=== PATIENT | male | born 1940 | race Hispanic/Latino ===

== ENCOUNTER 2017-12-16 09:38 | Emergency (ER) | payer OTHER ==
[~2017-12-16 09:38] MED LIST: ASPI-891 PO; ATOR40TA69 PO; DOXY100C2 PO; LISI-617 PO; METF500T6 PO; METO50TA18 PO; OMEP20CA10 PO
[2017-12-16 10:48] LABS: BASOPHILS % (AUTO) 0.5 % (0.0-5.0); EOSINOPHILS % (AUTO) 1.1 % (0.0-8.0); HEMATOCRIT 44.2 % (42-54); LYMPHOCYTES % (AUTO) 20.4 % (21.0-51.0); MEAN CORPUSCULAR HEMOGLOBIN 27.9 pg (27.0-33.0); MEAN CORPUSCULAR HGB CONC 33.9 g/dL (32.0-36.0); MEAN CORPUSCULAR VOLUME 82.2 fL (79-99); MONOCYTES % (AUTO) 7.3 % (3.0-13.0); NEUTROPHILS % (AUTO) 70.7 % (40.0-77.0); PLATELET COUNT (AUTO) 185 K/uL (130-400); RED BLOOD CELL COUNT(AUTO) 5.38 MIL/uL (4.50-6.20); RED CELL DISTRIBUTION WIDTH 15.5 % (11.0-15.5); WHITE BLOOD COUNT (AUTO) 8.2 K/uL (4.8-10.8)
[2017-12-16 10:54] LABS: CREATININE 1.2 mg/dL (0.5-1.5); INR 1.01 (0.85-1.15); PARTIAL THROMBOPLASTIN TIME 24.2 SEC (26.3-35.5); POTASSIUM 4.6 mmol/L (3.5-5.1); PROTHROMBIN TIME 10.6 SEC (9.6-11.6)
[2017-12-16 11:07] LABS: ALBUMIN 3.9 g/dL (3.5-5.0); BILIRUBIN,TOTAL 1.2 mg/dL (0.2-1.0); CREATINE KINASE MB 5.4 ng/mL (0.5-3.6); TOTAL PROTEIN, SERUM 7.4 g/dL (6.0-8.3)
== END 2017-12-16 13:30 | disposition home or self-care (01) ==
LOC: EDH 09:38
DX: M79.605 Pain in left leg (principal); M79.604 Pain in right leg; I10 Essential (primary) hypertension; I25.10 Atherosclerotic heart disease of native coronary artery without angina pectoris; I25.2 Old myocardial infarction; E78.5 Hyperlipidemia, unspecified; Z87.891 Personal history of nicotine dependence
CPT/HCPCS: 36415; 71045; 80053; 82550; 82553; 84484; 85025; 85610; 85730; 93005; 93925; 93970

== ENCOUNTER → 2019-02-20 | Outpatient (CLI) | payer OTHER ==
[~2019-02-20] MED LIST changes: +METF-444 PO; -METF500T6 PO
== END | disposition home or self-care (01) ==
LOC: SHCH 09:40
PROVIDERS: ATTEND Internal Medicine Cardiovascular Disease
DX: I65.23 Occlusion and stenosis of bilateral carotid arteries (principal)
CPT/HCPCS: 93880

== ENCOUNTER → 2019-02-22 | Outpatient (CLI) | payer OTHER | END | disposition home or self-care (01) | LOC: SHCH 12:54 | PROVIDERS: ATTEND Internal Medicine Cardiovascular Disease | DX: I35.0 Nonrheumatic aortic (valve) stenosis (principal) | CPT/HCPCS: 93306 ==

== ENCOUNTER → 2019-02-28 | Outpatient (CLI) | payer OTHER ==
[~2019-02-28] VITALS: Ht 175.3 cm; Wt 87.5 kg
[~2019-02-28] MED LIST changes: +ALBUMIN (HUMAN) 25% 100 ML IV ONE; +REGADENOSON 0.4 MG/5 ML PF SYG IVP ONE; +REGADENOSON 0.4 MG/5 ML PF SYG IVP SCH
== END | disposition home or self-care (01) ==
LOC: SHCH 07:52
PROVIDERS: ATTEND Internal Medicine Cardiovascular Disease
DX: I25.10 Atherosclerotic heart disease of native coronary artery without angina pectoris (principal); I49.5 Sick sinus syndrome
CPT/HCPCS: 78452; 93017; 96374; A9500 ×2; J2785; P9046

== ENCOUNTER → 2019-03-28 | Emergency (ER) | payer OTHER ==
[~2019-03-28] MED LIST changes: -ALBUMIN (HUMAN) 25% 100 ML IV ONE; +ASPIRIN 325 MG TABLET ONE; +ASPIRIN 325MG EC TAB 325 MG TABLET.DR PO SCH; +FAMOTIDINE/PF 20 MG/2 ML VIAL IV ONE; +LIDOCAINE HCL 2% VISCOUS 15 ML UDCUP ONE; +MAG HYDROX/AL HYDROX/SIMETH ES 30 ML SUSP UDCUP ONE; +METOPROLOL TARTRATE 50 MG TAB ONE; +METOPROLOL TARTRATE 50 MG TAB PO SCH; +NITROGLYCERIN 0.4 MG SL TAB SL ONE; +NITROGLYCERIN 1GM/1 INCH PACKET TD SCH; +PANTOPRAZOLE SODIUM 40 MG TABLET.DR PO SCH; -REGADENOSON 0.4 MG/5 ML PF SYG IVP ONE; -REGADENOSON 0.4 MG/5 ML PF SYG IVP SCH; +SODIUM CHLORIDE 0.9% 10 ML VIAL IVP PRN
[2019-03-28 06:24] LABS: EOSINOPHILS % (AUTO) 2.4 % (0.0-8.0); HEMATOCRIT 39.8 % (42-54); LYMPHOCYTES % (AUTO) 33.1 % (21.0-51.0); MEAN CORPUSCULAR HEMOGLOBIN 27.5 pg (27.0-33.0); MEAN CORPUSCULAR HGB CONC 33.2 g/dL (32.0-36.0); MEAN CORPUSCULAR VOLUME 82.7 fL (79-99); MONOCYTES % (AUTO) 7.5 % (3.0-13.0); PLATELET COUNT (AUTO) 202 K/uL (130-400); RED BLOOD CELL COUNT(AUTO) 4.82 MIL/uL (4.50-6.20); RED CELL DISTRIBUTION WIDTH 14.1 % (11.0-15.5)
[2019-03-28 06:30] LABS: CREATININE 1.2 mg/dL (0.5-1.5); POTASSIUM 4.1 mmol/L (3.5-5.1)
[2019-03-28 06:36] LABS: BILIRUBIN,TOTAL 0.6 mg/dL (0.2-1.0); TOTAL PROTEIN, SERUM 6.9 g/dL (6.0-8.3)
[2019-03-28 06:47] LABS: INR 1.04 (0.85-1.15); PARTIAL THROMBOPLASTIN TIME 27.7 SEC (26.3-35.5); PROTHROMBIN TIME 10.9 SEC (9.6-11.6)
[2019-03-28 07:50] LABS: B-TYPE NATRIURETIC PEPTIDE 110 pg/mL (0-100)
== END ==
LOC: EDH 06:07 → UNDOADMIN 07:51 → EDHIP 07:51 → UNDODISIN 10:24
DX: R07.89 Other chest pain (principal); R10.13 Epigastric pain; E78.5 Hyperlipidemia, unspecified; I25.10 Atherosclerotic heart disease of native coronary artery without angina pectoris; I10 Essential (primary) hypertension; I25.2 Old myocardial infarction; Z98.890 Other specified postprocedural states
CPT/HCPCS: 36415; 71045; 80053; 82550; 83605; 83690; 83880; 84484 ×2; 85025; 85610; 85730; 93005; 96374; 99285; J3490; G0378

== ENCOUNTER 2019-07-05 17:55 | Emergency (ER) | payer OTHER ==
[~2019-07-05 17:55] MED LIST changes: -ASPIRIN 325 MG TABLET ONE; -ASPIRIN 325MG EC TAB 325 MG TABLET.DR PO SCH; -FAMOTIDINE/PF 20 MG/2 ML VIAL IV ONE; -LIDOCAINE HCL 2% VISCOUS 15 ML UDCUP ONE; -MAG HYDROX/AL HYDROX/SIMETH ES 30 ML SUSP UDCUP ONE; -METOPROLOL TARTRATE 50 MG TAB ONE; -METOPROLOL TARTRATE 50 MG TAB PO SCH; -NITROGLYCERIN 0.4 MG SL TAB SL ONE; -NITROGLYCERIN 1GM/1 INCH PACKET TD SCH; +OMEP-50 PO; -OMEP20CA10 PO; -PANTOPRAZOLE SODIUM 40 MG TABLET.DR PO SCH; -SODIUM CHLORIDE 0.9% 10 ML VIAL IVP PRN
[2019-07-05] MEDS ORDERED: ACETAMINOPHEN 325 MG TAB ONE (19:15)
== END 2019-07-05 20:20 | disposition home or self-care (01) ==
LOC: EDH 17:55
DX: S46.011A Strain of muscle(s) and tendon(s) of the rotator cuff of right shoulder, initial encounter (principal); I10 Essential (primary) hypertension; E78.5 Hyperlipidemia, unspecified; I25.10 Atherosclerotic heart disease of native coronary artery without angina pectoris; I25.2 Old myocardial infarction; Z95.0 Presence of cardiac pacemaker; Z87.891 Personal history of nicotine dependence; Z98.890 Other specified postprocedural states; W18.39XA Other fall on same level, initial encounter; Y93.89 Activity, other specified; Y92.89 Other specified places as the place of occurrence of the external cause; Y99.8 Other external cause status
CPT/HCPCS: 73030

== ENCOUNTER 2021-05-24 07:13 | Day surgery (SDC) | payer OTHER ==
[2021-05-21 13:16] LABS: BASOPHILS % (AUTO) 0.7 % (0.0-5.0); EOSINOPHILS % (AUTO) 0.9 % (0.0-8.0); HEMATOCRIT 42.9 % (42-54); LYMPHOCYTES % (AUTO) 16.7 % (21.0-51.0); MEAN CORPUSCULAR HEMOGLOBIN 27.6 pg (27.0-33.0); MEAN CORPUSCULAR HGB CONC 31.2 g/dL (32.0-36.0); MEAN CORPUSCULAR VOLUME 88.3 fL (79-99); MONOCYTES % (AUTO) 9.6 % (3.0-13.0); NEUTROPHILS % (AUTO) 71.5 % (40.0-77.0); PLATELET COUNT (AUTO) 209 K/uL (130-400); RED BLOOD CELL COUNT(AUTO) 4.86 MIL/uL (4.50-6.20); WHITE BLOOD COUNT (AUTO) 8.2 K/uL (4.8-10.8)
[2021-05-21 13:20] LABS: APPEARANCE,URINE Clear (CLEAR); BILIRUBIN,URINE Negative (NEGATIVE); COLOR,URINE Yellow (YELLOW); GLUCOSE, URINE (UA) Negative (NEGATIVE); KETONES,URINE Negative (NEGATIVE); LEUKOCYTE ESTERASE ,URINE Negative (NEGATIVE); NITRATE,URINE Negative (NEGATIVE); OCCULT BLOOD,URINE Negative (NEGATIVE); PH,URINE 5.5 (5.0-8.0); PROTEIN,URINE Negative (NEGATIVE); UROBILINOGEN,URINE 0.2 mg/dL (0.2-1.0)
[2021-05-21 13:26] LABS: CREATININE 1.1 mg/dL (0.5-1.5); INR 1.14 (0.85-1.15); POTASSIUM 4.7 mmol/L (3.5-5.1); PROTHROMBIN TIME 12.3 SEC (9.6-11.6)
[2021-05-21 15:55] VITALS: BP 137/91
[~2021-05-24] VITALS: Ht 175.3 cm; Wt 77.7 kg
[2021-05-24] VITALS (10 sets, daily range): BP systolic 119–144; BP diastolic 69–104
[~2021-05-24 07:13] MED LIST changes: +APIX5TAB PO; -ASPI-891 PO; -ATOR40TA69 PO; +ATOR40TA71 PO; -DOXY100C2 PO; -LISI-617 PO; +LISI10TA24 PO; -METO50TA18 PO; -OMEP-50 PO
[2021-05-24] MEDS ORDERED: 0.9%NACL 1000ML 1,000 ML IV ONE (07:44)
[2021-05-24] MEDS ORDERED: SODIUM BICARB 50MEQ 50ML VIAL 50 ML ONE (11:33)
[2021-05-24] MEDS ORDERED: HEPARIN 10,000 UNIT/10ML (1,000 UNIT/ML) VIAL ONE (11:34)
[2021-05-24] MEDS ORDERED: MEPERIDINE-PF 25 MG/ML SYG ONE ×2 (11:34→11:49)
[2021-05-24] MEDS ORDERED: LIDOCAINE HCL 400MG/20ML VIAL ONE (11:34)
[2021-05-24] MEDS ORDERED: MIDAZOLAM HCL 1 MG/ML 2ML VIAL ONE ×2 (11:34→11:49)
[2021-05-24] MEDS ORDERED: IOHEXOL 350 MG/ML 100ML INFUS..BTL IV ONE (11:35)
[2021-05-24] MEDS ORDERED: NITROGLYCERIN 2 MG VIAL IV ONE (11:35)
[2021-05-24] MEDS ORDERED: IOHEXOL-350 50ML VIAL IV ONE (11:35)
[2021-05-24] MEDS ORDERED: DEXTROSE 50%-WATER 50 ML DISP.SYRIN IV PRN (13:00)
[2021-05-24] MEDS ORDERED: GLUCAGON 1MG KIT 1 MG ML IM PRN (13:00)
[2021-05-24] MEDS ORDERED: 0.9%NACL 1000ML 1,000 ML IV SCH (13:00)
[2021-05-24] MEDS ORDERED: CARVEDILOL 6.25 MG TABLET PO SCH (15:02)
[2021-05-24] MEDS ORDERED: CARVEDILOL 12.5 MG TABLET PO ONE (15:05)
[2021-05-24] MEDS ORDERED: INSULIN HUMULIN R 100 UNIT/ML 3ML SQ SCH (16:30)
== END 2021-05-24 16:45 | disposition home or self-care (01) ==
LOC: DAH 07:13
PROVIDERS: ATTEND Internal Medicine Cardiovascular Disease
DX: I25.119 Atherosclerotic heart disease of native coronary artery with unspecified angina pectoris (principal); I70.1 Atherosclerosis of renal artery; I25.82 Chronic total occlusion of coronary artery; I50.42 Chronic combined systolic (congestive) and diastolic (congestive) heart failure; E11.51 Type 2 diabetes mellitus with diabetic peripheral angiopathy without gangrene; K21.9 Gastro-esophageal reflux disease without esophagitis; I25.5 Ischemic cardiomyopathy; I48.0 Paroxysmal atrial fibrillation; Z95.5 Presence of coronary angioplasty implant and graft; Z95.0 Presence of cardiac pacemaker; Z98.890 Other specified postprocedural states; Z79.01 Long term (current) use of anticoagulants
CPT/HCPCS: 36415; 71045; 75625; 80048; 81003; 82948 ×2; 85025; 85610; 85730; 93005 ×2; 93459; A4215; A4216; A4221; A4222; A4223 ×3; A4606; A4663; C1760; C1769; C1894; J1644; J2175 ×2; J2250 ×2; J3490 ×3; J7030; Q9965; Q9967 ×2; 99156; 99157

== ENCOUNTER → 2021-10-04 | Outpatient (CLI) | payer OTHER | END | disposition home or self-care (01) | LOC: SHCH 12:40 | PROVIDERS: ATTEND Internal Medicine Cardiovascular Disease | DX: I25.5 Ischemic cardiomyopathy (principal); I08.0 Rheumatic disorders of both mitral and aortic valves; I11.9 Hypertensive heart disease without heart failure; E11.9 Type 2 diabetes mellitus without complications; E78.5 Hyperlipidemia, unspecified; Z95.1 Presence of aortocoronary bypass graft | CPT/HCPCS: 93306; 93356 ==

== ENCOUNTER 2022-01-03 05:56 | Day surgery (SDC) | payer OTHER ==
[2021-12-31 10:18] LABS: BASOPHILS % (AUTO) 0.6 % (0.0-5.0); EOSINOPHILS % (AUTO) 1.2 % (0.0-8.0); HEMATOCRIT 42.6 % (42-54); LYMPHOCYTES % (AUTO) 23.3 % (21.0-51.0); MEAN CORPUSCULAR HEMOGLOBIN 26.7 pg (27.0-33.0); MEAN CORPUSCULAR HGB CONC 31.5 g/dL (32.0-36.0); MEAN CORPUSCULAR VOLUME 84.9 fL (79-99); MONOCYTES % (AUTO) 8.5 % (3.0-13.0); PLATELET COUNT (AUTO) 165 K/uL (130-400); RED BLOOD CELL COUNT(AUTO) 5.02 MIL/uL (4.50-6.20); RED CELL DISTRIBUTION WIDTH 14.3 % (11.0-15.5); WHITE BLOOD COUNT (AUTO) 6.7 K/uL (4.8-10.8)
[2021-12-31 10:29] LABS: INR 1.18 (0.85-1.15); POTASSIUM 4.4 mmol/L (3.5-5.1); PROTHROMBIN TIME 12.7 SEC (9.6-11.6)
[2021-12-31 10:30] LABS: PARTIAL THROMBOPLASTIN TIME 30.6 SEC (26.3-35.5)
[2021-12-31 10:33] VITALS: BP 117/77
[2022-01-03] VITALS (12 sets, daily range): BP systolic 119–131; BP diastolic 78–90
[~2022-01-03] VITALS: Ht 175.3 cm; Wt 74.6 kg
[~2022-01-03 05:56] MED LIST changes: -LISI10TA24 PO; +LISI20TA24 PO; +METO25TA6 PO; +NITR0.4T50 SL; +TAMS-1 PO
[2022-01-03] MEDS ORDERED: 0.9% NACL 500ML IV.SOLN 500 ML IV SCH (06:00)
[2022-01-03] MEDS ORDERED: 0.9%NACL 1000ML 1,000 ML IV ONE (06:07)
[2022-01-03] MEDS ORDERED: MEPERIDINE-PF 25 MG/ML SYG ONE ×3 (07:12→08:59)
[2022-01-03] MEDS ORDERED: CEFAZOLIN SODIUM 1 GM VIAL ONE (07:12)
[2022-01-03] MEDS ORDERED: BUPIVACAINE/PF 0.25% 30ML VIAL IJ ONE (07:12)
[2022-01-03] MEDS ORDERED: MIDAZOLAM HCL 1 MG/ML 2ML VIAL ONE ×2 (07:13→08:06)
[2022-01-03] MEDS ORDERED: LIDOCAINE HCL 1% MDV 50ML VIAL ONE (07:13)
[2022-01-03] MEDS ORDERED: IOHEXOL-350 50ML VIAL IV ONE (07:37)
[2022-01-03] MEDS ORDERED: ACETAMINOPHEN WITH CODEINE 1 TAB TAB PO PRN (09:30)
[2022-01-03] MEDS ORDERED: ONDANSETRON 4MG INJ IV PRN (09:30)
[2022-01-03] MEDS ORDERED: CEFAZOLIN SODIUM 1 GM VIAL IVP SCH (09:30)
[2022-01-03] MEDS: ACETAMINOPHEN WITH CODEINE 1 TAB TAB PO PRN ×2 (13:06→16:39)
== END 2022-01-03 18:20 | disposition home or self-care (01) ==
LOC: DAH 05:56
PROVIDERS: ATTEND Internal Medicine Cardiovascular Disease
DX: I25.5 Ischemic cardiomyopathy (principal); I49.5 Sick sinus syndrome; T82.110A Breakdown (mechanical) of cardiac electrode, initial encounter; I48.0 Paroxysmal atrial fibrillation; I11.0 Hypertensive heart disease with heart failure; I50.42 Chronic combined systolic (congestive) and diastolic (congestive) heart failure; I25.10 Atherosclerotic heart disease of native coronary artery without angina pectoris; E11.9 Type 2 diabetes mellitus without complications; F32.A Depression, unspecified; Z79.899 Other long term (current) drug therapy; Z79.01 Long term (current) use of anticoagulants; Z79.84 Long term (current) use of oral hypoglycemic drugs; Z98.890 Other specified postprocedural states; Z95.1 Presence of aortocoronary bypass graft; Z82.49 Family history of ischemic heart disease and other diseases of the circulatory system; Y83.8 Other surgical procedures as the cause of abnormal reaction of the patient, or of later complication, without mention of misadventure at the time of the procedure
CPT/HCPCS: 33225; 33233; 33249; 36415; 71045; 80048; 82948 ×2; 85025; 85610; 85730; 93005; A4215; A4216; A4221; A4222; A4223 ×3; A4606; A4663; C1769 ×3; C1882; C1894; C1895; C1900; J0690 ×2; J2175 ×3; J2250 ×2; J3490 ×2; J7030; Q9967; 99156; 99157

== ENCOUNTER → 2023-11-14 | Outpatient (CLI) | payer OTHER | END | disposition home or self-care (01) | LOC: SHCH 10:03 | PROVIDERS: ATTEND Internal Medicine Cardiovascular Disease | DX: I73.9 Peripheral vascular disease, unspecified (principal) | CPT/HCPCS: 93925 ==

== ENCOUNTER → 2023-11-24 | Outpatient (CLI) | payer OTHER | END | disposition home or self-care (01) | LOC: RAH 12:06 | PROVIDERS: ATTEND Internal Medicine Cardiovascular Disease | DX: M47.816 Spondylosis without myelopathy or radiculopathy, lumbar region (principal); M51.36 Other intervertebral disc degeneration, lumbar region; M48.07 Spinal stenosis, lumbosacral region | CPT/HCPCS: 72100 ==

== ENCOUNTER → 2024-08-29 | Outpatient (CLI) | payer OTHER ==
--- NOTE | 2024-09-02 13:31 | HMCSR ---
APPROVED REPORT EXAM: Two-dimensional and M-mode echocardiogram with Doppler and color Doppler. 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 Surgery/Intervention Pacemaker: CABG: RISK FACTORS Hypertension Hyperlipidemia 2D Dimensions RVDd4.2 cmLVEF(%)54.5 (>50%)LVED Vol(simp.)101.0 mL IVSd1.3 (0.7-1.1cm)FS(%)28 %LVES Vol(simp.)46.0 mL LVDd4.0 (3.8-5.6cm)Ao Root(2D)3.0 (2.0-3.7cm)LVEF(%, simp.)54 % PWd1.3 (0.7-1.1cm)LVOT diam2.0 (1.8-2.4cm)LA ESV INDEX (BP)26.63 mL/m2 LVDs2.9 (2.5-4.0cm) Aortic Valve AoV Vmax2.1 m/Alexus Peak GR17.7 mmHgLVOT Vmax1.0 m/s AoV VTI0.5 mAo Mean GR9.9 mmHgLVOT VTI0.22 m FREDY (VMAX)1.4 cm2AVA (VTI) 1.4 cm2 Mitral Valve MV E Vmax69.1 cm/sDECEL Klmm490 ms MV A Vmax84.0 cm/sP 1/2 T64 ms E/A ratio0.8MVA (PHT)3.4 cm2 MR Max PG101 mmHg TDI E/E' Wmmyao19.8E/E' Ietpelm80.0 Pulmonary Valve PV Vmax1.2 m/sPV VTI0.27 mPV Mean GR3 mmHg PV Peak GR6.0 mmHgPI End Essie. Torin 0.8 cm/s Tricuspid Valve TR Vmax3.0 m/sRAP (EST) 8 dxNtUHGC98.9 mmHg TR Peak GR34.9 mmHg Left Ventricle Left ventricular cavity size is normal. There is mild concentric left ventricular hypertrophy. LVEF i s 50%. No left ventricle thrombus noted on this study. Grade 1 diastolic dysfunction Right Ventricle The right ventricle is normal size. Right ventricular systolic function is mildly reduced. Atria The left atrium size is normal. The right atrium is mildly dilated. Aortic Valve Aortic valve is trileaflet. The aortic valve is calcified and displays decreased opening. Trace to mi ld aortic regurgitation. Calculated aortic valve area is 1.4 cm2 with maximum pressure gradient of 17 .7 mmHg and mean pressure gradient of 9.9 mmHg. Mitral Valve Mitral valve leaflets are mildly sclerotic but open well. Mitral regurgitation is trace. There is no mitral valve stenosis. Tricuspid Valve Tricuspid valve is not well visualized. There is moderate tricuspid regurgitation. Right ventricular systolic pressure is estimated at 40-50 mmHg. Pulmonic Valve The pulmonic valve leaflets are thin and pliable; valve motion is normal. There is trace pulmonic lashon vular regurgitation. Great Vessels The aortic root is normal in size. IVC is not well visualized. Pericardium No pericardial effusion. Conclusion Left ventricular cavity size is normal. There is mild concentric left ventricular hypertrophy. LVEF is 50%. Grade 1 diastolic dysfunction Right ventricular systolic function is mildly reduced. The left atrium size is normal. Aortic valve is trileaflet. The aortic valve is calcified and displays decreased opening. Trace to mild aortic regurgitation. Calculated aortic valve area is 1.4 cm2 with maximum pressure gradient of 17.7 mmHg and mean pressure gradient of 9.9 mmHg. Mitral valve leaflets are mildly sclerotic but open well. Mitral regurgitation is trace. There is moderate tricuspid regurgitation. Right ventricular systolic pressure is estimated at 40-50 mmHg. There is trace pulmonic valvular regurgitation. The aortic root is normal in size. No pericardial effusion.
== END | disposition home or self-care (01) ==
LOC: SHCH 10:02
PROVIDERS: ATTEND Internal Medicine Cardiovascular Disease
DX: I08.3 Combined rheumatic disorders of mitral, aortic and tricuspid valves (principal); I25.10 Atherosclerotic heart disease of native coronary artery without angina pectoris; I95.2 Hypotension due to drugs; E78.5 Hyperlipidemia, unspecified; Z95.0 Presence of cardiac pacemaker; Z95.1 Presence of aortocoronary bypass graft
CPT/HCPCS: 93306

== ENCOUNTER 2024-10-07 07:47 | Day surgery (SDC) | payer OTHER ==
[2024-10-03 14:37] LABS: BASOPHILS # (AUTO) 0.04 K/uL (0.00-0.20); BASOPHILS % (AUTO) 0.5 % (0.0-5.0); EOSINOPHILS % (AUTO) 2.6 % (0.0-8.0); HEMATOCRIT 41.4 % (42-54); IMMATURE GRANULOCYTE ABSOLUTE 0.04 K/uL (0-1); LYMPHOCYTES # (AUTO) 1.5 K/uL (1.0-4.8); LYMPHOCYTES % (AUTO) 19.8 % (21.0-51.0); MEAN CORPUSCULAR HEMOGLOBIN 27.4 pg (27.0-33.0); MEAN CORPUSCULAR HGB CONC 32.6 g/dL (32.0-36.0); MONOCYTES # (AUTO) 0.6 K/uL (0.1-1.0); MONOCYTES % (AUTO) 8.1 % (3.0-13.0); NEUTROPHILS # (AUTO) 5.2 K/uL (1.8-7.7); NEUTROPHILS % (AUTO) 68.5 % (40.0-77.0); PLATELET COUNT (AUTO) 192 K/uL (130-400); RED BLOOD CELL COUNT(AUTO) 4.93 MIL/uL (4.50-6.20); RED CELL DISTRIBUTION WIDTH 13.3 % (11.0-15.5); WHITE BLOOD COUNT (AUTO) 7.6 K/uL (4.8-10.8)
[2024-10-03 14:41] VITALS: BP 148/81; PULSE 78; RESP 16; TEMP 97.5
[2024-10-03 14:41] LABS: APPEARANCE,URINE CLEAR (CLEAR); BILIRUBIN,URINE NEGATIVE (NEGATIVE); COLOR,URINE LIGHT-YELLOW (YELLOW); GLUCOSE, URINE (UA) NEGATIVE (NEGATIVE); KETONES,URINE NEGATIVE (NEGATIVE); LEUKOCYTE ESTERASE ,URINE NEGATIVE Leu/uL (NEGATIVE); NITRATE,URINE NEGATIVE (NEGATIVE); OCCULT BLOOD,URINE NEGATIVE (NEGATIVE); PROTEIN,URINE 10 mg/dL (NEGATIVE); UROBILINOGEN,URINE 0.2 mg/dL (0.2-1.0)
[2024-10-03 14:45] LABS: CREATININE 1.2 mg/dL (0.5-1.3); POTASSIUM 4.5 mmol/L (3.5-5.1)
[2024-10-03 14:47] LABS: ADD UA MICROSCOPIC YES
[2024-10-03 14:49] LABS: INR 1.03 (0.85-1.15); PROTHROMBIN TIME 11.1 SEC (9.6-11.6)
[2024-10-03 14:50] LABS: PARTIAL THROMBOPLASTIN TIME 27.5 SEC (26.3-35.5); RBC,URINE 0-1 /HPF (0-1); WBC,URINE 0-1 /HPF (0-1)
--- NOTE | 2024-10-03 14:52 | EKG ---
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
[2024-10-03 15:25] LABS: B-TYPE NATRIURETIC PEPTIDE 136 pg/mL (0-100)
--- NOTE | 2024-10-03 15:34 | HMCIMG ---
CHEST 1VW REASON: PRE OP COMPARISON: 01/03/2022 FINDINGS: Single view of the chest was obtained. Lungs are clear. Heart size is normal. There is no pulmonary vascular congestion. Mediastinum and bony thorax appear unremarkable. Previous median sternotomy and pacemaker are again noted. IMPRESSION: 1. No acute process seen in chest.
[~2024-10-07] VITALS: Ht 175.3 cm; Wt 84.6 kg
[2024-10-07] VITALS (10 sets, daily range): BP systolic 120–163; BP diastolic 66–82; PULSE 70–80; RESP 16–18; TEMP 97.4–98.2
[~2024-10-07 07:47] MED LIST changes: -ATOR40TA71 PO; -LISI20TA24 PO; +LISI5TAB21 PO; +METO-391 PO; -METO25TA6 PO; -NITR0.4T50 SL; +PANT40TA54 PO
[2024-10-07] MEDS: 0.9%NACL 1000ML 1,000 ML IV SCH (09:27)
--- NOTE | 2024-10-07 09:34 | NUR ---
PT STATES HAS BEEN HAVING SMALL CHEST PAINS THAT COME AND GO SINCE YESTERDAY, STATES HAS HAD 4 TODAY THAT LAST ABOUT 3 TO 5 SECONDS. STATES PAIN IS VERY SLIGHT. DR. ANAYA MADE AWARE AND OK TO ORDER EKG, NO OTHER ORDERS AT THIS TIME
[2024-10-07] MEDS ORDERED: SODIUM BICARB 50MEQ 50ML VIAL 50 ML ONE (12:55)
[2024-10-07] MEDS ORDERED: LIDOCAINE HCL 400MG/20ML VIAL ONE (12:55)
[2024-10-07] MEDS ORDERED: MEPERIDINE-PF 25 MG/ML SYG ONE ×2 (12:55→13:17)
[2024-10-07] MEDS ORDERED: HEParin 10,000 UNIT/10ML (1,000 UNIT/ML) VIAL ONE (12:55)
[2024-10-07] MEDS ORDERED: IOHEXOL-350 75 ML VIAL IV ONE (12:55)
[2024-10-07] MEDS ORDERED: MIDAZOLAM HCL 1 MG/ML 2ML VIAL ONE ×2 (12:55→13:17)
[2024-10-07] MEDS ORDERED: HEParin-NS 1,000 UNIT/500 ML 1,000 ML IV ONE (12:56)
[2024-10-07] MEDS ORDERED: 0.9%NACL 1000ML 1,000 ML IV SCH (14:00)
[2024-10-07] MEDS ORDERED: DEXTROSE 50%-WATER 50 ML DISP.SYRIN IV PRN (14:00)
--- NOTE | 2024-10-07 14:18 | CCATH ---
PROCEDURES: * Left heart catheterization. * Selective diagnostic right and left coronary arteriogram. * Multiple saphenous vein graft angiogram. * KWONG angiogram. * Conscious sedation. INDICATIONS: * Known history of coronary artery disease. * Status post remote coronary artery bypass graft surgery. * Recurrent angina. * Abnormal Cardiolite. * Status post angioplasty and stenting of the saphenous vein graft to the PDA. COMPLICATIONS: None. TOTAL CONTRAST: 60 mL. APPROACH: Right femoral approach. DESCRIPTION OF PROCEDURE: The patient was taken to the cardiac catheterization lab after appropriate operative consents were signed. He was prepped and draped in the usual fashion. After conscious sedation was administered, ultrasound guidance was utilized to access the right common femoral artery. Access was obtained without difficulty and a 6-[place] sheath was advanced in retrograde fashion by modified Seldinger technique. At this point, an FL4 6-[place] catheter was advanced; however, it would not seat well in the left main, so we elected to utilize a FL3.5. This was engaged in the left main ostium. Imaging was obtained in multiplane. Left main was a small vessel that had a 99% distal tapering. It bifurcated into an LAD and a circumflex. Circumflex coronary artery was occluded 100% and not visualized by [place] injection. LAD was 100% occluded just distal to the first septal thoracic medicine specialist and this also compromised flow to the diagonal, which was 100% occluded. The [place] distal LAD was not seen by [place] injection. The catheter was withdrawn. FR4 6-[place] catheter was advanced and placed in the left ventricular cavity. Left ventricular end-diastolic pressure measurement was obtained and was measured at 10-12. Pullback revealed no aortic stenosis. Ventriculography was deferred. The patient has preserved LV systolic function by noninvasive studies. The FR4 6-[place] catheter was then engaged in the ostium of the right coronary artery, which was imaged in multiplane. This was noted to have severe critical disease involving its entire course. There was collateral flow to the PDA from a vein graft. At this point, the catheter was withdrawn and engaged in the saphenous vein graft presumably to the circumflex system, which was 100% occluded and has been occluded by prior study. The catheter was then engaged in the saphenous vein graft to the diagonal, which was a large graft supplying a small to moderately sized diagonal with adequate flow. The catheter was engaged into the left internal mammary artery, which was widely patent, supplying a moderately sized LAD distally with good flow. An right coronary bypass graft catheter was then engaged in the saphenous vein graft to the PDA. This was a patent graft supplying the PDA with patent stent in the graft. The graft to the PLVB was then visualized and was a large graft supplying the PLVB with good flow. At this point, the procedure was completed. Perclose was utilized with good hemostasis. The patient tolerated it well and left the cardiac catheterization lab in stable condition. FINAL IMPRESSION: * Severe [place] 3-vessel coronary artery disease. * Patent 4 of 5 grafts, KWONG to the LAD, saphenous vein graft to the diagonal, saphenous vein graft to PDA and saphenous vein graft to the PLVB. * No aortic stenosis. * Preserved left ventricular systolic function by noninvasive studies. Ejection fraction of 50-55%. * There is no significant change in the study in comparison to the one done in 2020. PLAN: Continue medical management. TID: [id number] RECEIPT: [id number]
[2024-10-07] MEDS ORDERED: ATOR40TA69 PO (15:08)
[2024-10-07] MEDS ORDERED: INSULIN humuLIN R 100 UNIT/ML 3ML SQ SCH (16:30)
--- NOTE | 2024-10-08 06:32 | EKG ---
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
== END 2024-10-07 18:26 | disposition home or self-care (01) ==
LOC: DAH 07:47
PROVIDERS: ATTEND Internal Medicine Cardiovascular Disease
DX: R93.1 Abnormal findings on diagnostic imaging of heart and coronary circulation (principal); I25.719 Atherosclerosis of autologous vein coronary artery bypass graft(s) with unspecified angina pectoris; I25.119 Atherosclerotic heart disease of native coronary artery with unspecified angina pectoris; I10 Essential (primary) hypertension; E78.5 Hyperlipidemia, unspecified; F41.9 Anxiety disorder, unspecified; F32.A Depression, unspecified; Z79.01 Long term (current) use of anticoagulants; Z79.899 Other long term (current) drug therapy
CPT/HCPCS: 80048; 83880; 85025; 85610; 85730; 81001; 36415; 71045; 93005 ×2; 93459; 82948; C1894 ×2; C1760; J3490 ×2; J2250 ×2; J2175 ×2; J1644; Q9967; A4215; A4222; A4221; A4663; A4216; A4606; A4223 ×3; 99156; 99157